=== PATIENT | male | born 1990 | race Caucasian/White ===

== ENCOUNTER 2017-08-10 00:42 | Emergency (ER) | payer MEDICARE, MEDICAID ==
[~2017-08-10] VITALS: Ht 182.9 cm; Wt 93.0 kg
[2017-08-10 00:47] VITALS: BP 164/86
== END 2017-08-10 08:22 | disposition left against medical advice (07) ==
LOC: ER 00:53
DX: Z53.21 Procedure and treatment not carried out due to patient leaving prior to being seen by health care provider (principal)